=== PATIENT | female | born 1950 | race Caucasian/White ===

== ENCOUNTER 2024-05-18 10:29 | Outpatient (CLI) | payer OTHER, SELFPAY | END 2024-05-18 10:30 | disposition home or self-care (01) | PROVIDERS: Visit Provider Physician Assistant Medical | DX: Z00.00 Encounter for general adult medical examination without abnormal findings (principal); G47.9 Sleep disorder, unspecified; Z13.6 Encounter for screening for cardiovascular disorders; Z13.29 Encounter for screening for other suspected endocrine disorder; Z78.0 Asymptomatic menopausal state | CPT/HCPCS: 80053; 80061; 84443 ==

== ENCOUNTER 2025-03-17 11:00 | Outpatient (CLI) | payer OTHER, SELFPAY | END 2025-03-17 11:01 | disposition home or self-care (01) | LOC: NFLDREF 03-23 16:24 | PROVIDERS: PCP Physician Assistant Medical; Referring Provider Physician Assistant Medical; Visit Provider Physician Assistant Medical | DX: K52.9 Noninfective gastroenteritis and colitis, unspecified (principal) | CPT/HCPCS: 87493; 87505; 87507 ==

== ENCOUNTER 2025-04-07 12:45 | Outpatient (CLI) | payer OTHER, SELFPAY ==
--- NOTE | 2025-04-07 13:00 | CRLHL7_ITS ---
For Patients: As a result of the Cures Act, medical imaging exams and procedure reports are released immediately into your electronic medical record. You may view this report before your referring provider. If you have questions, please contact your health care provider. INDICATION: BILATERAL SCREENING MAMMOGRAM, ASYMPTOMATIC 74 Y/O FEMALE COMPARISON: 08/01/2021, 04/27/2020, 08/05/2017 TECHNIQUE: Digital mammogram in CC and MLO projections including computer-aided detection (CAD) and tomosynthesis. BREAST COMPOSITION: The breasts are extremely dense, which lowers the sensitivity of mammography. FINDINGS: No suspicious findings. ASSESSMENT: BI-RADS 1 Negative RECOMMENDATION: Annual screening mammogram. A lay language report of this examination will be provided to the patient. Dictated by: Tony Pinzon MD @ 04/08/2025 08:42:37 (Electronically Signed)
--- NOTE | 2025-04-07 13:30 | CRLHL7_ITS ---
For Patients: As a result of the Century Cures Act, medical imaging exams and procedure reports are released immediately into your electronic medical record. You may view this report before your referring provider. If you have questions, please contact your health care provider. XR DXA BONE MINERAL DENSITY (BMD) Current height (in): 67.0. Weight (lb): 125.0. Menopause age: 49. Ethnicity: White. Reason for exam: Postmenopausal status. 1. Have you had a previous hip or vertebral fracture? No. 2. Have you had any fractures during your adult life which did not result from significant trauma (e.g., auto accident)? No. 3. Did either of your parents have a hip fracture? No. 4. Do you smoke? Yes. 5. Have you ever taken Glucocorticoids? No. 6. Do you have rheumatoid arthritis? No. 7. Do you have secondary osteoporosis? No. 8. Do you drink 3 or more alcoholic drinks per day? No. 9. Are you being treated for osteoporosis? No. 10. Have you ever taken any of the following medications: Actonel, Evista, Fosamax, Miacalcin, Reclast, Boniva, Forteo, HRT (i.e. estrogen/hormone therapy), Protelos, Prolia, Vitamin D, Calcium, other ??? please specify. ANSWER: Yes. Vitamin D, calcium. 11. Do you have any of the following medical conditions: Anorexia or bulimia, asthma or emphysema, end stage renal disease, hyperparathyroidism, any seizure disorders, cancer, inflammatory bowel diseases, hysterectomy, other ??? please specify. ANSWER: Hysterectomy. 12. What was your maximum height (inches)? 69. 13. Do you perform weight bearing exercise regularly? Yes. 14. Do you regularly consume dairy products? Yes. 15. Do you drink caffeinated beverages? Yes. 16. At what age did your period start? 15. 17. Are you premenopausal? No. 18. How many full-term pregnancies have you had? 1. 19. Have you ever missed your period for more than 6 months in a row (not including or menopause)? No. TECHNIQUE: Bone mineral density study was performed using the [employer]. FINDINGS: The results of the study expressed as bone mineral density (BMD) are as follows: Lumbar spine L1, L2, L4: BMD: 0.962 g/cm2. T-score: -0.7. Z-score: 1.6. Neck Left: BMD: 0.689 g/cm2. T-score: -1.4. Z-score: 0.5 Right: BMD: 0.718 g/cm2. T-score: -1.2. Z-score: 0.8 Total Left: BMD: 0.776 g/cm2. T-score: -1.4. Z-score: 0.3 Right: BMD: 0.796 g/cm2. T-score: -1.2. Z-score: 0.4 IMPRESSION: Osteopenia. *Comparison exams done prior to 11/2019 were performed on different unit, [facility]. COMPARISON: Compared with scan of 04/27/2020, the bone mineral density has decreased by 8.7 percent at the spine and decreased by 7.3 percent at the hip. FRAX 10-year Fracture Risk Major Osteoporotic Fracture: 9.1 percent Hip Fracture: 2.5 percent Reported Risk Factors: [place] () Neck BMD = 0.689, BMI = 19.6 Tony Pinzon M.D. Diagnostic Radiologist [email or web address] Transcribed: 10:52 am DW/Dictated by: Tony Pinzon MD @ 04/08/2025 10:07:00 AM (Electronically Signed)
--- NOTE | 2025-04-07 14:00 | CRLHL7_ITS ---
For Patients: As a result of the Cures Act, medical imaging exams and procedure reports are released immediately into your electronic medical record. You may view this report before your referring provider. If you have questions, please contact your health care provider. INDICATION: Lung cancer screening. History of smoking. High risk patient with greater than 50 pack-year smoking history. TECHNIQUE: Low-dose lung cancer screening non-contrast CT chest. Dose reduction techniques were used. COMPARISON: None. FINDINGS: NODULES: Subpleural densities at the right posterolateral apex. LUNGS AND PLEURA: Biapical pleural-parenchymal scarring MEDIASTINUM: The visualized thyroid is within normal limits. No adenopathy. CORONARY ARTERY CALCIFICATION: None. LIMITED UPPER ABDOMEN: Status post cholecystectomy. Vascular calcifications. MUSCULOSKELETAL: Degenerative sub cortical cystic change at the superior right humeral head. IMPRESSION: Probable subpleural scarring at the right posterolateral apex. LUNG-RADS CATEGORY: 3: Probably benign. RADIOLOGIST RECOMMENDATION: Low-dose CT chest in 6 months. Please note that all CT scans at this facility use dose modulation, iterative reconstruction, and/or weight-based dosing when appropriate to reduce radiation dose to as low as reasonably achievable. Dictated by Tony Pinzon MD @ 04/08/2025 11:42:24 AM (Electronically Signed)
== END 2025-04-07 12:46 | disposition home or self-care (01) ==
LOC: MAMMO 12:45
PROVIDERS: PCP Physician Assistant Medical; Visit Provider Physician Assistant Medical
DX: Z12.31 Encounter for screening mammogram for malignant neoplasm of breast (principal); R92.343 Mammographic extreme density, bilateral breasts; Z12.2 Encounter for screening for malignant neoplasm of respiratory organs; F17.200 Nicotine dependence, unspecified, uncomplicated; Z78.0 Asymptomatic menopausal state; M85.89 Other specified disorders of bone density and structure, multiple sites
CPT/HCPCS: 71271; 77063; 77067; 77080

== ENCOUNTER 2025-06-23 10:31 | Outpatient (CLI) | payer OTHER, SELFPAY | END 2025-06-23 10:32 | disposition home or self-care (01) | PROVIDERS: PCP Physician Assistant Medical; Referring Provider Physician Assistant Medical; Visit Provider Physician Assistant Medical | DX: F41.8 Other specified anxiety disorders (principal); Z13.228 Encounter for screening for other metabolic disorders; Z13.6 Encounter for screening for cardiovascular disorders | CPT/HCPCS: 80053; 80061; 84443 ==